=== PATIENT | male | born 1960 | race American Indian/Alaskan Native ===

== ENCOUNTER 2016-06-05 17:04 | Emergency (ER) | payer MEDICAID ==
[2016-06-05 17:26] VITALS: BP 157/98
--- NOTE | 2016-06-05 18:07 | Emergency Department Report ---
Chief Complaint: Chest Pain Stated Complaint: CHEST PAIN - HPI History of Present Illness: This is a 55-year-old male reports that he is having chest pain to left chest area that is 8 out of 10 and feels tight. He has similar incident in the past 2 but he said it was when he was using cocaine more than 20 years ago. He does not use any drugs at present. Denies any shortness of breath. Denies any radiation of pain. Patient has a history of hypertension and chronic pain. - ROS Review of Systems: All systems are negative unless stated in HPI above. - Exam Vital Signs: Vital Signs 06/05/16 17:21 Temperature 98 F Pulse Rate 69 Respiratory 18 Rate Blood Pressure 157/98 O2 Sat by Pulse 98 Oximetry Physical Exam: General: This is a 55-year-old male well-nourished well-developed in no acute distress. Cardiovascular: S1, S2. Reg Rate and rhythm. Lungs: Clear to auscultate bilaterally. No rhonchi wheezes or rales. MSE screening note: Focused history and physical exam performed. Due to findings the following was ordered:see [facility] ED Medical Decision Making - Medical Decision Making Medical decision making: Patient seen by provider in triage area. Appropriate protocol activated and patient to main ED to be seen by physician. ED Disposition for MSE Condition: Stable
[2016-06-05 18:31] LABS: Basophils % (Auto) 0.4 % (0.0-1.8); Eosinophils % (Auto) 4.2 % (0.0-4.3); Hematocrit 44.8 % (35.5-45.6); Hemoglobin 15.2 gm/dl (11.8-15.2); Mean Corpuscular HGB Conc 34 % (32-34); Mean Corpuscular Hemoglobin 30 pg (28-32); Mean Corpuscular Volume 90 fl (84-94); Platelet Count 176 K/mm3 (140-440); Red Blood Count 4.99 M/mm3 (3.65-5.03); Red Cell Distribution Width 14.7 % (13.2-15.2); White Blood Count 6.1 K/mm3 (4.5-11.0)
[2016-06-05 18:55] LABS: Alanine Aminotransferase 21 units/L (7-56); Albumin 4.1 g/dL (3.9-5); Albumin/Globulin Ratio 1.2 %; Alkaline Phosphatase 90 units/L (35-129); Anion Gap 19 mmol/L; BUN/Creatinine Ratio 10.71; Bilirubin,Total 0.3 mg/dL (0.1-1.2); Blood Urea Nitrogen 15 mg/dL (9-20); Calcium 9.3 mg/dL (8.4-10.2); Carbon Dioxide 22 mmol/L (22-30); Chloride 104.4 mmol/L (98-107); Creatine Kinase 469 units/L (55-170); Glucose 71 mg/dL (75-100); Sodium 141 mmol/L (137-145); Total Protein 7.4 g/dL (6.3-8.2)
--- NOTE | 2016-06-06 11:58 | ED Elopement Review ---
ED Pt Elopement review - Results review Lab results: Laboratory Tests 06/05/16 06/05/16 18:16 18:16 WBC 6.1 RBC 4.99 Hgb 15.2 Hct 44.8 MCV 90 MCH 30 MCHC 34 RDW 14.7 Plt Count 176 Lymph % (Auto) 41.1 H [place] % (Auto) 9.9 H Eos % (Auto) 4.2 Baso % (Auto) 0.4 Lymph # 2.5 [place] # 0.6 Eos # 0.3 Baso # 0.0 Seg Neutrophils % 44.4 Seg Neutrophils # 2.7 Sodium 141 Potassium 4.0 Chloride 104.4 Carbon Dioxide 22 Anion Gap 19 BUN 15 Creatinine 1.4 Estimated GFR > 60 BUN/Creatinine Ratio 10.71 Glucose 71 L Calcium 9.3 Total Bilirubin 0.3 AST 24 ALT 21 Alkaline Phosphatase 90 Total Creatine Kinase 469 H CK-MB (CK-2) Rel Index 0.6 Troponin T < 0.010 Total Protein 7.4 Albumin 4.1 Albumin/Globulin Ratio 1.2 - Call Back decision Pt Call Back Decision: No action required
== END 2016-06-05 19:05 | disposition left against medical advice (07) ==
LOC: ED 17:04
DX: R07.9 Chest pain, unspecified (principal); I10 Essential (primary) hypertension; G89.29 Other chronic pain; Z53.21 Procedure and treatment not carried out due to patient leaving prior to being seen by health care provider
CPT/HCPCS: 36415; 80053; 82550; 82553; 84484; 85025; 93005; 93010